=== PATIENT | female | born 1975 | race Hispanic/Latino ===

== ENCOUNTER → 2022-08-31 14:00 | Outpatient (CLI) | payer SELFPAY ==
[2022-09-03 15:13] LABS: Candida species Negative (Negative); Gardnerella vaginalis Negative (Negative); Trichomoas vaginalis Negative (Negative)
== END ==
PROVIDERS: PCP Physician Assistant; Referring Provider Physician Assistant; Visit Provider Physician Assistant
DX: Z01.419 Encounter for gynecological examination (general) (routine) without abnormal findings (principal)
CPT/HCPCS: 87480; 87510; 87660

== ENCOUNTER 2022-10-16 22:10 | Emergency (ER) | payer SELFPAY ==
[2022-10-16 22:21] VITALS: BP 133/65; PULSE 77; RESP 18; TEMP 36.4; O2SAT 98; BMI 32.4
[2022-10-16] MEDS: TET,DIPH,PERTUSS(ACELL),VAC/PF 0.5 ML SYRINGE IM (23:56)
--- NOTE | 2022-10-17 00:15 | ED_ITS ---
HPI - Animal Bite General Chief Complaint: Animal Bite Stated Complaint: Dog bite Time Seen by Provider: 10/16/22 23:24 Source: patient Mode of arrival: Ambulatory Limitations: no limitations History of Present Illness HPI narrative: 45-year-old female with no reported medical issues who was bit by a dog on her right hand earlier this evening. Patient was at a individuals house getting a massage. She needs to use the bathroom and had to go outside the house stairs to the bathroom upstairs in the individual had an dog, Estee that ran up and bit her hand. Patient states she is quite a bit of pain, swelling she can flex and open her fingers but is painful. States tetanus is not been updated in the last 5 years. Denies any other daily prescriptions. Has had prior and liposuction but no other surgeries. No known drug allergies. No tobacco, alcohol or illicit. Patient is accompanied by her . They did fill out a dog bite forms with registration. [employer] informed patient and family that the dog is up-to-date on its shots but they did not see any verification. Patient did take ibuprofen shortly after it happened. Related Data Home Medications Medication Instructions Recorded Confirmed ferrous sulfate 325 mg (65 mg ##0 10/07/15 iron) tablet (Iron (ferrous sulfate)) Vitamins (PRENAVITE) 1 tab PO QDAY ##0 12/19/15 Previous Rx's Medication Instructions Recorded ibuprofen 600 mg tablet 600 mg PO Q6HP PRN #30 tabs 12/29/15 amoxicillin 875 mg-potassium 1 tab PO BID #20 tabs 10/17/22 clavulanate 125 mg tablet ondansetron 4 mg disintegrating 4 mg PO Q6H PRN nausea and 10/17/22 tablet vomiting #10 tabs oxycodone 5 mg tablet 5 mg PO QID PRN pain #14 tabs 10/17/22 Allergies Allergy/AdvReac Type Severity Reaction Status Date / Time No Known Drug Allergies Allergy Verified 10/16/22 22:21 Review of Systems Review of Systems ROS Unobtainable: All systems reviewed & are unremarkable except as noted in HPI and below Patient History Surgical History Status post delivery (09/17/00) Status post delivery (12/12/05) Status post delivery (03/17/10) Status post delivery (12/26/15) Status post tubal ligation (12/26/15) Social History Smoking Status: Never smoker Smoking Status: Never smoker Substance Use Type: does not use Exam Narrative Exam Narrative: GENERAL: Alert and oriented x three, female in mild distress. HEENT: Head normocephalic, atraumatic, EOMI, pupils reactive, face symmetric, moist mucous membranes NECK: Supple, full range of motion CARDIOVASCULAR: Regular rate and rhythm without murmurs, rubs or gallops. RESPIRATORY: Breath sounds equal bilaterally, no wheezes rales or rhonchi. ABDOMEN: Soft, nontender. Normoactive bowel sounds all 4 quadrants. No guarding or rebound, rigidity, no mass : No CVA tenderness EXTREMITIES: Normal range of motion, no clubbing. Patient has several small lacerations and punctures over the dorsum of the hand and the palmar side over the 4th and 5th metacarpals, patient has quite a bit of swelling throughout the hand and fingers particularly 3rd 4th and 5th fingers and recent metacarpals. Has normal range of motion but is uncomfortable. 2+ radial pulse. Cap refill less than 2 seconds in all 5 fingers. Sensation throughout. There is 1 laceration that is about a cm that is gap was subcutaneous. Rest examination is are fairly superficial slight gap edge but do not appear to require repair. Neurovascularly intact NEUROLOGICAL: Cranial nerves II through XII grossly intact. Moving all extremities SKIN: Warm, dry, no petechiae, no rashes or lesions otherwise noted. Initial Vital Signs Initial Vital Signs: Vital Signs Temperature 97.6 F 10/16/22 22:21 Pulse Rate 77 10/16/22 22:21 Respiratory Rate 18 10/16/22 22:21 Blood Pressure 133/65 10/16/22 22:21 Pulse Oximetry 98 10/16/22 22:21 Oxygen Delivery Method Room Air 10/16/22 22:21 Procedures Laceration Repair Laceration 1: Site: hand (dorsum) Side (If applicable): right Size (cm): 2 Description: linear and irregular Depth: simple, single layer Local Anesthetic: lidocaine 2% Amount of anesthesia used (mL): 2 Pre-repair: wound explored, irrigated extensively and deep structures intact Skin layer closed with: nylon Skin layer suture size: 4-0 Number of sutures: 2 Technique: simple, interrupted Course Orders Ordered: ED Orders 10/17/22 00:41 XR hand RT min 3V Stat Discontinued Medications Acetaminophen (Acetaminophen 325 Mg Tablet) 975 mg PO NOW ONE Stop: 10/17/22 00:42 Last Admin: 10/17/22 00:55 Dose: 975 mg Documented By: Amoxicillin/Clavulanate Potassium (Amoxicillin/Clav 875/125 Mg) 1 tab PO NOW ONE Stop: 10/17/22 00:47 Last Admin: 10/17/22 00:55 Dose: 1 tab Documented By: Diphtheria/Tetanus/Acell Pertussis (Tet,Diph,Pertuss(Acell),Vac/Pf 0.5 Ml Syringe) 0.5 ml IM .ONCE ONE Stop: 10/16/22 22:28 Last Admin: 10/16/22 23:56 Dose: 0.5 ml Documented By: Lidocaine HCl (Lidocaine 2% Inj Sdv 5ml) 5 ml INJ INTRA-OP ONE Stop: 10/17/22 00:47 Last Admin: 10/17/22 02:22 Dose: 5 ml Documented By: Ondansetron HCl (Ondansetron 4 Mg Odt) 4 mg SL NOW ONE Stop: 10/17/22 02:18 Last Admin: 10/17/22 02:20 Dose: 4 mg Documented By: Ondansetron HCl (Ondansetron 4 Mg Odt Prepack) 1 bottle MISC SEEINSTR ONE Stop: 10/17/22 03:30 Last Admin: 10/17/22 03:36 Dose: 1 bottle Documented By: LEONOR Oxycodone HCl (Oxycodone Ir 5 Mg Tablet) 5 mg PO NOW ONE Stop: 10/17/22 02:16 Last Admin: 10/17/22 02:20 Dose: 5 mg Documented By: Oxycodone/Acetaminophen (Oxycodone/Apap 5/325 Prepack) 1 bottle MISC SEEINSTR ONE Stop: 10/17/22 03:30 Last Admin: 10/17/22 03:36 Dose: 1 bottle Documented By: LEONOR Vital Signs Vital signs: Vital Signs - 8 hr 10/16/22 22:21 10/17/22 03:42 Temperature 97.6 F Pulse Rate 77 57 L Respiratory Rate 18 16 Blood Pressure 133/65 107/61 Pulse Oximetry 98 100 Oxygen Delivery Method Room Air Room Air MDM - Animal Bite Imaging Data Extremity x-ray #1: Radiologist's Impression: No acute fracture dislocation, no radiopaque foreign body. Dorsal soft tissue swelling right hand identified on lateral radiograph. [facility] Narrative Medical decision making narrative: 45-year-old female who had a dog bite to right hand patient was at another individual's house went out to the backyard and was bitten. They did fill out report. Animals reportedly up-to-date on immunizations. Patient has several puncture wounds but did have 1 laceration that required repair. We discussed patient is very high-risk for infection. Started on oral antibiotics but with low threshold to return if any signs of infection. X-ray does not show any foreign body or fracture. Patient does have quite a bit of swelling. Received Tylenol here in the department as well as some drug or narcotic pain medication. Patient is neurovascularly intact. Tetanus was updated in the department. Patient was placed in splint for comfort but can remove as needed. Reviewed return precautions, need for antibiotics and wound management. Discharge Plan Departure Patient Disposition: Home Clinical Impression: Dog bite of hand, Laceration of hand Instructions: DI for Dog Bite Activity Restrictions/Additional Instructions: Dog bites or high-risk for infection please return if any signs of infection occur. Take antibiotic until gone. You may take Tylenol up to a 1000 mg every 6 hours needed for pain and/or ibuprofen up to 600 mg every 6 hours needed for pain. You can take Zofran 1 tablet every 6 hours as needed for nausea. Take this 10 or 20 minutes before the narcotic pain medication. You may take 1 or 2 tablets of oxycodone every 6 hours as needed for pain if Tylenol and ibuprofen are not strong enough. This medication can make you sleepy do not drive, perform hazardous activities or make any major decisions while taking it. This medication will make you constipated please take a stool softener once to twice daily until stools are soft and regular. Prescription sent to [facility]. Wound Care: Keep wound(s) clean and dry. Wash daily with soap and water only. Do not use over the counter products (alcohol or peroxide)on the wounds unless instructed by a physician. If wound condition worsens (increased/expanding redness, developing fluid blisters, or worsening pain), either contact your doctor for an urgent re-a ssessment , or return to the Emergency Department. Return to the Emergency Department for any new or worsening symptoms. Return to the ED, urgent care, or vist a primary care doctor for removal or s uture or abdelrahman for removal in 7-10 days. Return if fever greater than 100.4 Fahrenheit, increased swelling, increasing pain or worsening symptoms such as increased discharge or spreading redness. Rapidly worsening pain, weakness, loss of sensation or other new or concerning changes. Splint Care: Keep splint clean and dry. Elevated affected body part to decrease swelling. OK to use ice pack on the affected body part. Use for 15-20 minutes each time, for 5-6x per day. If you develop worsening pain, numbness, tingling, discoloration of the affected body part, loosen the splint by loosening the SADIE wrap, and either see your doctor for an urgent re-assessment, or return to the Emergency Department. Return to the Emergency Department for any new or worsening symptoms. Prescriptions: New amoxicillin-pot clavulanate 875-125 mg tablet 1 tab PO BID Qty: 20 0RF ondansetron 4 mg tablet,disintegrating 4 mg PO Q6H PRN (Reason: nausea and vomiting) Qty: 10 0RF oxycodone 5 mg tablet 5 mg PO QID PRN (Reason: pain) Qty: 14 0RF No Action ferrous sulfate [Iron (ferrous sulfate)] 325 MG tablet Qty: 0 Vitamins (PRENAVITE) 1 tab PO QDAY Qty: 0 ibuprofen 600 MG tablet 600 mg PO Q6HP PRNQty: 30 0RF Stand Alone Forms: Patient Portal/API
--- NOTE | 2022-10-17 00:41 | DI.RAD.S_ITS ---
PROCEDURE: XR HAND RT MIN 3V INDICATIONS: Dog bite RT hand TECHNIQUE: 3 views of the hand(s) acquired. COMPARISON: None. FINDINGS: Bones: No fractures or dislocations. Carpal bones are normally aligned. No suspicious bony lesions. Soft tissues: Generalized soft tissue swelling is seen. No radiopaque foreign bodies are seen. IMPRESSION: Soft tissue swelling, without a radiopaque foreign body. No acute bony abnormality is seen. Note: No significant discrepancy from the preliminary report. Dictated by: Antonio Padilla M.D. on 10/17/2022 at 7:39 Approved by: Antonio Padilla M.D. on 10/17/2022 at 7:39
[2022-10-17] MEDS: AMOXICILLIN/CLAV 875/125 MG 1 TAB PO (00:55)
[2022-10-17] MEDS: ACETAMINOPHEN 325 MG TABLET 975 MG PO (00:55)
[2022-10-17] MEDS: ONDANSETRON 4 MG ODT SL (02:20)
[2022-10-17] MEDS: OXYCODONE IR 5 MG TABLET PO (02:20)
[2022-10-17] MEDS: LIDOCAINE 2% INJ SDV 5ML 5 ML INJ (02:22)
[2022-10-17] MEDS: OXYCODONE/APAP 5/325 PREPACK 1 BOTTLE MISC (03:36)
[2022-10-17] MEDS: ONDANSETRON 4 MG ODT PREPACK 1 BOTTLE MISC (03:36)
[2022-10-17 03:42] VITALS: BP 107/61; PULSE 57; RESP 16; O2SAT 100
== END 2022-10-17 03:43 | disposition home or self-care (01) ==
PROVIDERS: Emergency Provider Emergency Medicine
DX: S61.451A Open bite of right hand, initial encounter (principal); W54.0XXA Bitten by dog, initial encounter; Z23 Encounter for immunization
CPT/HCPCS: 12001; 29125; 73130; 90471; 99283; 99284; 90715

== ENCOUNTER → 2022-11-04 08:29 | Outpatient (CLI) | payer SELFPAY ==
[2022-11-04 19:18] LABS: Add Manual Diff / Slide Review NO; Basophils Absolute Auto 0 /uL (0-100); Basophils Percent Auto 0.5 % (0-2); Eosinophils Absolute Auto 200 /uL (0-450); Eosinophils Percent Auto 3.6 % (2-4); Hematocrit 37.9 % (36-46); Hemoglobin 12.7 g/dL (12.0-16.0); Lymphocytes Absolute Auto 2600 /uL (1100-4500); Lymphocytes Percent Auto 43.3 % (25-40); Mean Corpuscular HGB Conc 33.5 % (30-36); Mean Corpuscular Hemoglobin 29.2 PG (26-34); Monocytes Absolute Auto 500 /uL (0-900); Monocytes Percent Auto 7.9 % (3-14); Neutrophils Absolute Auto 2700 /uL (1500-7000); Neutrophils Percent Auto 44.7 % (50-75); Platelet Count 268 X10^3/uL (150-400); Red Blood Cell Count 4.36 X10^6/uL (4.0-5.2); Red Cell Distribution Width 13.5 % (11.6-14.8); White Blood Cell Count 5.9 X10^3/uL (4.5-11.0)
[2022-11-04 19:34] LABS: C-Reactive Protein Quant < 0.5 mg/dL (<1.0)
[2022-11-04 20:31] LABS: Erythrocyte Sedimentation Rate 19 MM/HR (0-20)
== END ==
PROVIDERS: PCP Family Medicine; Visit Provider Family Medicine
DX: M79.641 Pain in right hand (principal); S61.451A Open bite of right hand, initial encounter; W54.0XXA Bitten by dog, initial encounter
CPT/HCPCS: 85025; 85651; 86140

== ENCOUNTER → 2022-12-27 11:06 | Outpatient (CLI) | payer SELFPAY ==
--- NOTE | 2022-12-27 | DI.MRI.S_ITS ---
PROCEDURE: MR HAND RT WO/W CON INDICATIONS: PAIN / SWELLING / DOG BITE TECHNIQUE: Noncontrast coronal T1 spin echo and STIR, sagittal T1 spin echo with fat saturation and STIR, axial T1 spin echo and T2 fast spin echo with fat saturation. After the administration of contrast, axial/sagittal/coronal T1 spin echo with fat saturation through the right hand. COMPARISON: None. FINDINGS: Image quality: Excellent. Bones: There is geographic area of marrow edema involving mid to ulnar portion of lunate and show heterogeneous contrast enhancement. No other area of abnormal marrow signal is seen. No fracture or dislocation. No other area of abnormal intraosseous enhancement. No suspicious bony lesions. Soft tissues: No soft tissue masses are visualized. Extensor and flexor tendons are grossly intact. The scanned muscles demonstrate normal overall bulk and internal signal. Subcutaneous tissues appear normal as well. No abnormal soft tissue enhancement. IMPRESSION: 1. 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 2. No other area of abnormal marrow signal or intraosseous enhancement is seen. No other fracture or dislocation. 3. Extensor and flexor tendons are grossly intact. No enhancing soft tissue mass or drainable fluid collection. No gross right hip muscle signal abnormality. Dictated by: Marco Antonio Marcelo M.D. on 12/27/2022 at 13:16 Approved by: Marco Antonio Marcelo M.D. on 12/27/2022 at 13:19
== END ==
PROVIDERS: PCP Family Medicine; Referring Provider Family Medicine; Visit Provider Family Medicine
DX: S61.451D Open bite of right hand, subsequent encounter (principal); M79.641 Pain in right hand; W54.0XXD Bitten by dog, subsequent encounter
CPT/HCPCS: 73220; A9579